=== PATIENT | female | born 1935 | race Caucasian/White ===

== ENCOUNTER 2017-07-17 13:11 | Inpatient (IN) | payer MEDICARE, BC ==
--- NOTE | 2017-07-17 13:40 | ED ---
General Adult HPI - General Chief complaint: Fall Stated complaint: FALL Time Seen by Provider: 07/17/17 13:23 Source: EMS, RN notes reviewed Mode of arrival: EMS Limitations: no limitations - History of Present Illness Initial comments: 82-year-old female presents to the emergency Department chief complaint of fall. Patient states that she fell getting out of the bathtub. Patient is a poor historian. Patient does state she had some lightheadedness prior to the fall. She denies chest pain or shortness of breath. She denies hitting her head. She complains of left hip and low back pain. She states she has not walked since the fall.Patient denies any recent fever, chills, shortness of breath, chest pain, abdominal pain, nausea vomiting, numbness or tingling, dysuria or hematuria, constipation or diarrhea, headaches or visual changes, or any other current symptoms. - Related Data Home Medications Medication Instructions Recorded Confirmed Albuterol Inhaler [Ventolin Hfa 2 puff INHALATION RT-Q4H PRN 07/17/17 07/17/17 Inhaler] Aspirin EC [Ecotrin Low Dose] 81 mg PO DAILY 07/17/17 07/17/17 Brimonidine Tartrate [Alphagan P 1 drops BOTH EYES BID 07/17/17 07/17/17 0.15% Ophth Soln] Cholecalciferol [Vitamin D3] 5,000 unit PO DAILY 07/17/17 07/17/17 Cyanocobalamin (Vitamin B-12) 2,000 mcg PO DAILY 07/17/17 07/17/17 [Vitamin B-12] Fluticasone/Salmeterol [Advair 1 puff INHALATION RT-BID 07/17/17 07/17/17 500-50 Diskus] Multivitamins, Thera [Multivitamin 1 tab PO DAILY 07/17/17 07/17/17 (formulary)] Simvastatin [Zocor] 10 mg PO HS 07/17/17 07/17/17 Timolol 0.5% Ophth Gel Forming 1 drop BOTH EYES DAILY 07/17/17 07/17/17 [Timoptic-Xe 0.5% Gel Form] amLODIPine [Norvasc] 10 mg PO DAILY 07/17/17 07/17/17 traMADol HCL [Ultram] 50 mg PO BID PRN 07/17/17 07/17/17 Allergies Allergy/AdvReac Type Severity Reaction Status Date / Time acetaminophen [From Tylenol] Allergy Unknown Verified 07/17/17 15:14 CALCIUM CITRATE AdvReac LEG CRAMPS Uncoded 07/17/17 15:14 Review of Systems ROS Statement: Those systems with pertinent positive or pertinent negative responses have been documented in the HPI. ROS Other: All systems not noted in ROS Statement are negative. Past Medical History Past Medical History: COPD, Dementia, Hypertension History of Any Multi-Drug Resistant Organisms: None Reported Past Surgical History: No Surgical Hx Reported Past Psychological History: No Psychological Hx Reported Smoking Status: Current every day smoker Past Alcohol Use History: None Reported Past Drug Use History: None Reported General Exam - General Exam Comments Initial Comments: General: The patient is awake and alert, in no distress, and does not appear acutely ill. Eye: Pupils are equal, round and reactive to light, extra-ocular movements are intact; there is normal conjunctiva bilaterally. No signs of icterus. Ears, nose, mouth and throat: There are moist mucous membranes and no oral lesions. Neck: The neck is supple, there is no tenderness. Cardiovascular: There is a regular rate and rhythm. No murmur, rub or gallop is appreciated. Respiratory: Lungs are clear to auscultation, respirations are non-labored, breath sounds are equal. No wheezes, stridor, rales, or rhonchi. Gastrointestinal: Soft, non-distended, non-tender abdomen without masses or organomegaly noted. There is no rebound or guarding present. No CVA tenderness. Bowel sounds are unremarkable. Back: There is no tenderness to palpation in the midline. There is no obvious deformity. No rashes noted. tenderness to left lateral hip. Musculoskeletal: Normal ROM, no tenderness, There is no pedal edema. tenderness to palpation over left hip. There is no calf tenderness or swelling. Sensation intact. Pulses equal bilaterally 2+. Neurological: CN II-XII intact, There are no obvious motor or sensory deficits. Coordination appears grossly intact. Speech is normal. Skin: Skin is warm and dry and no rashes or lesions are noted. Psychiatric: Cooperative, appropriate mood & affect, normal judgment. Limitations: no limitations Course Vital Signs 07/17/17 07/17/17 13:13 15:00 Temperature 98.2 F Pulse Rate 89 82 Respiratory 20 20 Rate Blood Pressure 191/90 194/84 O2 Sat by Pulse 91 L 97 Oximetry EKG Findings - EKG Comments: EKG Findings:: normal sinus rhythm 87 bpm, normal axis, no atopy, no S-T depressions or elevations, Medical Decision Making - Medical Decision Making 82-year-old female presents emergency department chief of left hip pain.at this time CAT scan is reviewed and negative. At this time chest x-ray does show concern for right lower lobe pneumonia with a pulmonary nodule. This and the patient due to the frequent falls the lightheadedness and the finding of pneumonia. Patient is in agreement with this plan. Dr. Kwong does agree to the admission. - Lab Data Result diagrams: 07/17/17 13:44 07/17/17 13:44 Lab Results 07/17/17 07/17/17 07/17/17 Range/Units 13:44 13:44 13:44 WBC 17.5 H (3.8-10.6) k/uL RBC 5.37 (3.80-5.40) m/uL Hgb 16.0 (11.4-16.0) gm/dL Hct 48.8 H (34.0-46.0) % MCV 90.8 (80.0-100.0) fL MCH 29.7 (25.0-35.0) pg MCHC 32.8 (31.0-37.0) g/dL RDW 14.5 (11.5-15.5) % Plt Count 235 (150-450) k/uL Neutrophils % 89 % Lymphocytes % 6 % Monocytes % 3 % Eosinophils % 1 % Basophils % 0 % Neutrophils # 15.6 H (1.3-7.7) k/uL Lymphocytes # 1.1 (1.0-4.8) k/uL Monocytes # 0.6 (0-1.0) k/uL Eosinophils # 0.1 (0-0.7) k/uL Basophils # 0.0 (0-0.2) k/uL PT (9.0-12.0) sec INR (<1.2) APTT (22.0-30.0) sec Sodium 137 (137-145) mmol/L Potassium 3.8 (3.5-5.1) mmol/L Chloride 104 (98-107) mmol/L Carbon Dioxide 24 (22-30) mmol/L Anion Gap 9 mmol/L BUN 10 (7-17) mg/dL Creatinine 0.60 (0.52-1.04) mg/dL Est GFR (MDRD) Af Amer >60 (>60 ml/min/1.73 sqM) Est GFR (MDRD) Non-Af >60 (>60 ml/min/1.73 sqM) Glucose 106 H (74-99) mg/dL Calcium 8.9 (8.4-10.2) mg/dL Magnesium 1.6 (1.6-2.3) mg/dL Total Bilirubin 0.5 (0.2-1.3) mg/dL AST 16 (14-36) U/L ALT 24 (9-52) U/L Alkaline Phosphatase 91 (38-126) U/L Total Creatine Kinase 34 (30-135) U/L CK-MB (CK-2) 0.8 (0.0-2.4) ng/mL CK-MB (CK-2) Rel Index 2.4 Troponin I <0.012 (0.000-0.034) ng/mL Total Protein 6.5 (6.3-8.2) g/dL Albumin 3.4 L (3.5-5.0) g/dL 07/17/17 Range/Units 13:44 WBC (3.8-10.6) k/uL RBC (3.80-5.40) m/uL Hgb (11.4-16.0) gm/dL Hct (34.0-46.0) % MCV (80.0-100.0) fL MCH (25.0-35.0) pg MCHC (31.0-37.0) g/dL RDW (11.5-15.5) % Plt Count (150-450) k/uL Neutrophils % % Lymphocytes % % Monocytes % % Eosinophils % % Basophils % % Neutrophils # (1.3-7.7) k/uL Lymphocytes # (1.0-4.8) k/uL Monocytes # (0-1.0) k/uL Eosinophils # (0-0.7) k/uL Basophils # (0-0.2) k/uL PT 10.5 (9.0-12.0) sec INR 1.0 (<1.2) APTT 23.9 (22.0-30.0) sec Sodium (137-145) mmol/L Potassium (3.5-5.1) mmol/L Chloride (98-107) mmol/L Carbon Dioxide (22-30) mmol/L Anion Gap mmol/L BUN (7-17) mg/dL Creatinine (0.52-1.04) mg/dL Est GFR (MDRD) Af Amer (>60 ml/min/1.73 sqM) Est GFR (MDRD) Non-Af (>60 ml/min/1.73 sqM) Glucose (74-99) mg/dL Calcium (8.4-10.2) mg/dL Magnesium (1.6-2.3) mg/dL Total Bilirubin (0.2-1.3) mg/dL AST (14-36) U/L ALT (9-52) U/L Alkaline Phosphatase (38-126) U/L Total Creatine Kinase (30-135) U/L CK-MB (CK-2) (0.0-2.4) ng/mL CK-MB (CK-2) Rel Index Troponin I (0.000-0.034) ng/mL Total Protein (6.3-8.2) g/dL Albumin (3.5-5.0) g/dL - Radiology Data Radiology results: report reviewed, image reviewed Disposition Clinical Impression: Fall, Contusion of left hip, Lumbar contusion, Right lower lobe pneumonia, Pulmonary nodule, Weakness, Altered mental status Disposition: ADMITTED IP TO THIS [facility] Condition: Stable Referrals: Nonstaff,Physician [Primary Care Provider] - 1-2 days Decision Date: 07/17/17 Decision Time: 15:21
[2017-07-17 14:00] LABS: Basophils % (A) 0 %; CH 29.6; CHCM 32.7; Eosinophils # (A) 0.1 k/uL (0-0.7); Eosinophils % (A) 1 %; HCT 48.8 % (34.0-46.0); HDW 2.37; Luc # (Auto) 0.07; Luc % (Auto) 0; Lymphocytes # (A) 1.1 k/uL (1.0-4.8); Lymphocytes % (A) 6 %; MCH 29.7 pg (25.0-35.0); MCHC 32.8 g/dL (31.0-37.0); MCV 90.8 fL (80.0-100.0); Mean Platelet Volume 7.2; Monocytes # (A) 0.6 k/uL (0-1.0); Monocytes % (A) 3 %; Neutrophils # (A) 15.6 k/uL (1.3-7.7); Neutrophils % (A) 89 %; RBC 5.37 m/uL (3.80-5.40); RDW 14.5 % (11.5-15.5); WBC 17.5 k/uL (3.8-10.6); WBC (Perox) 16.33
[2017-07-17 14:17] LABS: Partial Thromboplastin Time 23.9 sec (22.0-30.0); Prothrombin Time 10.5 sec (9.0-12.0)
--- NOTE | 2017-07-17 14:18 | XR ---
EXAMINATION TYPE: XR chest 1V DATE OF EXAM: 07/17/2017 COMPARISON: NONE HISTORY: Pain TECHNIQUE: Single frontal view of the chest is obtained. FINDINGS: Nodular density overlying the left lower lobe measuring 1 cm. Subsegmental changes at the right lung base and right apex. Atherosclerotic change aorta. Underlying COPD suspected. IMPRESSION: 1. 1 cm left lower lobe pulmonary nodule. Additional ill-defined infiltrate right apex and right lowe r lobe. Consider follow-up CT scan.
--- NOTE | 2017-07-17 14:20 | XR ---
EXAMINATION TYPE: XR Hip LT and AP Pelvis DATE OF EXAM: 07/17/2017 COMPARISON: NONE HISTORY: Pain TECHNIQUE: A single AP view of the pelvis is obtained. Two views of the left hip are obtained. FINDINGS: There is diffuse osteopenia. SI joints are symmetric. Joint spaces are preserved. No definite acute displaced fracture. IMPRESSION: 1. No definite acute displaced fracture. If symptoms persist obtained CT scan.
[2017-07-17 14:22] LABS: ALT 24 U/L (9-52); AST 16 U/L (14-36); Alkaline Phosphatase 91 U/L (38-126); Anion Gap 9 mmol/L; Blood Urea Nitrogen 10 mg/dL (7-17); Calcium 8.9 mg/dL (8.4-10.2); Carbon Dioxide 24 mmol/L (22-30); Chloride 104 mmol/L (98-107); Glucose 106 mg/dL (74-99); Magnesium 1.6 mg/dL (1.6-2.3); Non-African American GFR(MDRD) >60 (>60 ml/min/1.73 sqM); Potassium 3.8 mmol/L (3.5-5.1); Sodium 137 mmol/L (137-145); Total Bilirubin 0.5 mg/dL (0.2-1.3); Total Protein 6.5 g/dL (6.3-8.2)
[2017-07-17 14:26] LABS: Creatine Kinase 34 U/L (30-135)
--- NOTE | 2017-07-17 14:29 | XR ---
Lumbar spine HISTORY: Pain from fall 3 views of the lumbar spine No comparisons There is a S-shaped scoliosis suspected in the thoracic lumbar spine. Vertebral bodies show low atten uation. Lumbar vertebral bodies show preserved height. Alignment is maintained. Loss of disc height p resent at L2-3. Spondylosis is present. Bone mineralization is reduced. Dense vascular calcifications are present. IMPRESSION: Osteopenia, scoliosis.
[2017-07-17 14:38] LABS: Creatine Kinase MB 0.8 ng/mL (0.0-2.4); Troponin I <0.012 ng/mL (0.000-0.034)
--- NOTE | 2017-07-17 15:07 | CT ---
EXAMINATION TYPE: CT hip LT wo con DATE OF EXAM: 07/17/2017 COMPARISON: Plain film same date HISTORY: Left hip pain. CT DLP: 237.6 mGycm Automated exposure control for dose reduction was used. Helical acquisition through the left hip. Cor onal and sagittal reconstructions. FINDINGS: There is no displaced fracture or dislocation. Alignment is maintained. Bone mineralization is reduce d and joint space are normal. Soft tissues are normal. Atherosclerotic vascular calcifications are pr esent. Probable bone island present within the ischium. IMPRESSION: NO ACUTE FRACTURE OR DISLOCATION.
[2017-07-17] MEDS ORDERED: IPRATROPIUM-ALBUTEROL 3 ML NEB INHALATION PRN (15:21)
[2017-07-17] MEDS ORDERED: LEVOFLOXACIN 750MG-D5W PMX 750 MG in DEXTROSE/WATER 1 150ML.BAG IVPB STA (15:21)
[2017-07-17] MEDS ORDERED: PNEUMONIA PROTOCOL UTILIZED 1 EACH MISC PO PRN (15:21)
[2017-07-17] MEDS ORDERED: ALBUTEROL NEBULIZED 2.5 MG/3 ML INHALATION PRN (15:23)
[2017-07-17] MEDS ORDERED: MORPHINE SULFATE 2 MG/ML SYRINGE IVP STA (15:24)
[2017-07-17] MEDS: SODIUM CHLORIDE 0.9% 1,000 ML IV SCH (15:53)
[2017-07-17] MEDS ORDERED: ACETAMINOPHEN TAB 325 MG TAB PO PRN (16:00)
[2017-07-17] MEDS ORDERED: MORPHINE SULFATE 4 MG/ML SYRINGE IV PRN (16:00)
[2017-07-17] MEDS ORDERED: RX INFO: IV CONTRAST WAS GIVEN 1 EACH MISC MISCELLANE PRN (16:04)
[2017-07-17] MEDS ORDERED: hydrALAZINE HCL 20 MG/ML 1 ML VIAL IM PRN (16:15)
--- NOTE | 2017-07-17 16:33 | P.HPIM ---
History of Present Illness H&P Date: 07/17/17 Chief Complaint: fall Patient is an 82-year-old female with a past medical history of significant tobacco abuse, hypertension, dementia, and COPD presented via EMS after a fall. She states that she was walking to her bedroom from the bathroom around 2 AM and fell. She states her legs felt weak and she fell. She denies any dizziness, lightheadedness, and/or fainting. She denies any recent illnesses including cough, cold, fever, and chills. Her brother and sister-in- law are at bedside state that she has been complaining of headache. She states that she had one last week but it is better now. The headache is typically at the back of her head without radiation, feels like a pressure, and is worse at night. She is unsure what makes it better or worse but it is intermittent. Her [id number] states that she has been complaining of intermittent dizziness. She has had a cough that is wet and nonproductive for quite some time. They also report that she has lost approximately 15 pounds in the last 6 months. She has a poor appetite, lives alone, and has Meals on Wheels. She does not use a cane or a walker. She does complain of hip pain after her fall. Initially she complained of left- sided hip pain to her family in the emergency personnel. She currently complains of right hip pain without radiation. She recently started seeing Dr. Fermin of visiting physicians. She denies any recent changes in her medications. She has only been taking Advair as needed. She struggles with memory and feels she may benefit from a home health care nurse. In the emergency department she underwent an extensive evaluation. She had a CT of her hip done which was negative. Lumbar spine x-ray was negative. Chest x-ray showed possible right apex infiltration and 1 cm left lower lobe pulmonary nodule. She was given a dose of Levaquin and IV fluids. EKG is reviewed by me reveals normal sinus rhythm with no significant ST-T wave changes at a rate of 87. Review of Systems General: no fever/chills, no rigors, + weight loss, + decreased appetite Eyes: No double vision, no unusual blurry vision, no loss of vision ENT: No rhinorrhea, congestion, no trush Cardiovascular: No chest pain, no palpitations, no syncope, no edema, No paroxysmal nocturnal dyspnea, + dizziness Pulmonary: No shortness of breath, no wheezing, + chronic cough, hemoptysis Abdominal: No abdominal pain, no constipation, no diarrhea, no vomiting, no nausea, no distention Genitourinary: No dysuria, no urinary frequency, no hematuria, no unusual discharge/odor Neuro: + headache, No unusual paresthesias, no unusual paresis/paralysis Dermatologic: No unusual rashes, no unusual lesions, no unusual changes in nails Endocrinology: No intolerance to heat/cold, no excessive thirst,] no unusual fatigue Hematologic: No unusual bruising or bleeding, no unusual cervical lymphadenopathy Psychiatric: No changes in mood or behaviors, no changes in sleep pattern Past Medical History Past Medical History: COPD, Dementia, Hypertension Additional Past Medical History / Comment(s): Glaucoma, hard of hearing History of Any Multi-Drug Resistant Organisms: None Reported Past Surgical History: No Surgical Hx Reported Past Psychological History: No Psychological Hx Reported Smoking Status: Current every day smoker (Smokes approximately 2 packs a day of mini cigars.) Past Alcohol Use History: None Reported Past Drug Use History: None Reported Additional History: Lives alone, does not use any assistive devices - Past Family History Mother Additional Family Medical History / Comment(s): Heart disease Father Additional Family Medical History / Comment(s): Had part of his lung removed- possibly for lung cancer Medications and Allergies Home Medications Medication Instructions Recorded Confirmed Type Albuterol Inhaler [Ventolin Hfa 2 puff INHALATION RT-Q4H PRN 07/17/17 07/17/17 History Inhaler] Aspirin EC [Ecotrin Low Dose] 81 mg PO DAILY 07/17/17 07/17/17 History Brimonidine Tartrate [Alphagan P 1 drops BOTH EYES BID 07/17/17 07/17/17 History 0.15% Ophth Soln] Cholecalciferol [Vitamin D3] 5,000 unit PO DAILY 07/17/17 07/17/17 History Cyanocobalamin (Vitamin B-12) 2,000 mcg PO DAILY 07/17/17 07/17/17 History [Vitamin B-12] Fluticasone/Salmeterol [Advair 1 puff INHALATION RT-BID 07/17/17 07/17/17 History 500-50 Diskus] Multivitamins, Thera [Multivitamin 1 tab PO DAILY 07/17/17 07/17/17 History (formulary)] Simvastatin [Zocor] 10 mg PO HS 07/17/17 07/17/17 History Timolol 0.5% Ophth Gel Forming 1 drop BOTH EYES DAILY 07/17/17 07/17/17 History [Timoptic-Xe 0.5% Gel Form] amLODIPine [Norvasc] 10 mg PO DAILY 07/17/17 07/17/17 History traMADol HCL [Ultram] 50 mg PO BID PRN 07/17/17 07/17/17 History Allergies Allergy/AdvReac Type Severity Reaction Status Date / Time CALCIUM CITRATE AdvReac LEG CRAMPS Uncoded 07/17/17 15:14 Physical Exam Osteopathic Statement: *. No significant issues noted on an osteopathic structural exam other than those noted in the History and Physical/Consult. Vitals: Vital Signs Temp Pulse Resp BP Pulse Ox 07/17/17 16:08 99.2 F 07/17/17 16:00 72 18 178/82 94 L 07/17/17 15:00 82 20 194/84 97 07/17/17 13:13 98.2 F 89 20 191/90 91 L Intake and Output 07/17/17 07/17/17 07/17/17 06:59 14:59 22:59 Other: Weight 45.359 kg Patient Weight 07/18/17 06:59 Weight 45.359 kg General: non toxic, no distress, appears older than stated age, cachectic Derm: no rashes, no lesions, no ulcers, no unusual ecchymoses Head: atraumatic, normocephalic, symmetric Eyes: EOMI, no lid lag, anicteric sclera, pupils equal round reactive to light ENT: no post nasal drip, no thrush , nearest patent, no pharyngeal erythema Neck: No thyromegaly, no cervical lymphadenopathy, trachea midline, supple Mouth: no lip lesion, mucous membranes dry Cardiovascular: S1S2 reg, no murmur, positive posterior tibial pulse bilateral, no edema , no JVD, no clubbing, no cyanosis, capillary refill less than 2 seconds Lungs: Decreased breath sounds bilateral bases, no rhonchi, no rales , no accessory muscle use Abdominal: soft, nontender to palpation, no guarding, no appreciable organomegaly, normal bowel sounds Ext: no gross muscle atrophy, muscle strength 4 out of 5 in all 4 extremities grossly, no contractures, Neuro: CN II-XI grossly intact, light touch intact all 4 extremities, finger to nose within normal limits, Psych: Alert, oriented, appropriate affect Results CBC & Chem 7: 07/17/17 13:44 07/17/17 13:44 Labs: Abnormal Lab Results - Last 24 Hours (Table) 07/17/17 07/17/17 Range/Units 13:44 13:44 WBC 17.5 H (3.8-10.6) k/uL Hct 48.8 H (34.0-46.0) % Neutrophils # 15.6 H (1.3-7.7) k/uL Glucose 106 H (74-99) mg/dL Albumin 3.4 L (3.5-5.0) g/dL Comments: EKG reviewed by me reveals normal sinus rhythm rate of [address]- T wave changes Chest x-ray: report reviewed, image reviewed CT scan - chest: pending CT Scan - head: pending Thrombosis Risk Factor Assmnt - DVT/VTE Prophylaxis DVT/VTE Prophylaxis: Mechanical Prophylaxis ordered Assessment and Plan (1) Right upper lobe pneumonia Status: Acute (2) Accelerated hypertension Status: Acute (3) Dementia Status: Acute (4) Protein calorie malnutrition Status: Acute (5) Contusion of left hip Status: Acute (6) Fall Status: Acute (7) Pulmonary nodule Status: Acute Plan: #Right-sided pneumonia -Levaquin IV 1 given with follow-up oral dosing - await sputum culture - With history of smoking will check CT chest - IVF - Bronchodilators # Fall with left hip contusion -Pain control -PT/OT eval -Likely will need home health #Headache associated with dizziness and nausea -Check head CT -Telemetry -2-D echocardiogram Accelerated hypertension -Likely secondary to pain and not taking oral medication -Resume Norvasc -As needed hydralazine #1 cm left lower lobe pulmonary nodule -Check CT chest #Moderate protein calorie nutrition -dietary recommendations # Tobacco abuse -Nicotine replacement Pain cessation recommended # Dementia -Continue to provide a safe and supportive environment #COPD without exacerbation -Continue with Advair and DuoNeb therapy -No indication for steroids Chronic: Hearing loss Glaucoma Surrogate decision-maker: Sunny Holly, brother [phone] CODE STATUS: DO NOT RESUSCITATE DVT prophylaxis: SCDs Discussed with: Patient, family, ER provider Anticipated discharge: 24-[address]: Home with home health A total of 60 minutes was spent on the care of this complex patient more than 50 % of the time was spent in counseling and care coordination.
[2017-07-17] MEDS: amLODIPine 10 MG TAB PO SCH (16:47)
[2017-07-17] MEDS: ONDANSETRON 4 MG/2 ML VIAL IVP PRN (16:47)
[2017-07-17 17:23] LABS: Appearance,Urine Cloudy (Clear); Bacteria,Urine Many /hpf; Bilirubin,Urine Negative (Negative); Glucose,Urine (UA) Negative (Negative); Granular Casts,Urine 3 /lpf (0); Ketones,Urine Negative (Negative); Leukocyte Esterase,Urine Small (Negative); Mucus,Urine Rare /hpf; Nitrite,Urine Negative (Negative); PH, Urine 7.5 (5.0-8.0); Particle Count 22022; Protein,Urine Trace (Negative); RBC,Urine 10 /hpf (0-5); Specific Gravity,Urine 1.011 (1.001-1.035); UA Billing (MACRO vs. MICRO) MICRO; Urobilinogen,Urine <2.0 mg/dL (<2.0); WBC,Urine 8 /hpf (0-5)
[2017-07-17] MEDS: NICOTINE 21MG/24HR PATCH TRANSDERM SCH (17:31)
--- NOTE | 2017-07-17 18:55 | CT ---
EXAMINATION TYPE: CT brain wo con DATE OF EXAM: 07/17/2017 COMPARISON: NONE HISTORY: WARD CT DLP: 1797.0 mGycm Automated exposure control for dose reduction was used. FINDINGS: There is moderate hypodensity in the vila-white matter in both cerebral hemispheres and more noticeab le in the right frontal lobe and right parietal lobe. There is no midline shift. There is no sign of intracranial hemorrhage. The calvarium is intact. IMPRESSION: EXTENSIVE VILA AND WHITE MATTER CHANGES IN BOTH CEREBRAL HEMISPHERES AND MORE IN THE RIGHT HEMISPHERE COMPARED TO THE LEFT PROBABLY DUE TO CHRONIC ISCHEMIA. NO HEMORRHAGE. THERE IS RELATIVE SPARING OF T HE CEREBELLUM.
--- NOTE | 2017-07-17 19:01 | CT ---
EXAMINATION TYPE: CT chest w con DATE OF EXAM: 07/17/2017 COMPARISON: NONE HISTORY: Possible pneumonia. CT DLP: 176.0 mGycm Automated exposure control for dose reduction was used. CONTRAST: CT scan of the chest is performed with IV Contrast, patient injected with 100 mL of Omnipaque 300. FINDINGS: There is mild pulmonary emphysema. There are subpleural interstitial density in the right lower lobe. There is a 4 x 5 cm area of masslike consolidation in the right lower lobe at the posterior basal se gment. There are a few bilateral bronchial lymph nodes that measure up to 1 cm. Thoracic aorta is ath eromatous. There is no evidence of dissection. There is a 2 cm irregular area of consolidation in the posterior left lower lobe. There is a 2.5 cm irregular rounded area of consolidation in the subpleur al lateral left lower lobe. There is mild bilateral enlargement of the adrenal glands without a discrete mass seen. I see no foca l liver defect. There is mild thoracic kyphosis. I see no focal bone destruction. IMPRESSION: There is masslike consolidation in several areas of both lower lobes. This is suspicious for tumor. The possibility of metastatic disease should be considered. Emphysema. Pulmonary interstitial fibrosis.
[2017-07-17] MEDS: SYMBICORT 160-4.5 MCG INHALER INHALATION SCH (19:42)
[2017-07-17] MEDS: ATORVASTATIN 10 MG TAB PO SCH (20:44)
[2017-07-17] MEDS: BRIMONIDINE TARTRATE 0.2% DROPS 5 ML BTL BOTH EYES SCH (20:44)
[2017-07-18] MEDS: SODIUM CHLORIDE 0.9% 1,000 ML IV SCH ×3 (03:32→21:37)
[2017-07-18] MEDS: SYMBICORT 160-4.5 MCG INHALER INHALATION SCH ×2 (08:21→20:55)
[2017-07-18] MEDS: ASPIRIN 81 MG PO SCH (08:31)
[2017-07-18] MEDS: BRIMONIDINE TARTRATE 0.2% DROPS 5 ML BTL BOTH EYES SCH ×2 (08:31→21:37)
[2017-07-18] MEDS: amLODIPine 10 MG TAB PO SCH (08:31)
[2017-07-18] MEDS: NICOTINE 21MG/24HR PATCH TRANSDERM SCH (08:32)
[2017-07-18] MEDS: TIMOLOL 0.5% OPHTH DROPS 5 ML BTL BOTH EYES SCH ×2 (08:40→21:37)
[2017-07-18] MEDS: traMADol 50 MG TAB PO PRN ×2 (08:46→16:45)
[2017-07-18] MEDS ORDERED: amLODIPine 10 MG TAB PO SCH (09:00)
[2017-07-18 09:16] LABS: CH 30.1; CHCM 32.9; HCT 46.7 % (34.0-46.0); HDW 2.38; HGB 15.5 gm/dL (11.4-16.0); MCH 30.6 pg (25.0-35.0); MCHC 33.2 g/dL (31.0-37.0); MCV 92.2 fL (80.0-100.0); Mean Platelet Volume 8.2; RBC 5.06 m/uL (3.80-5.40); RDW 15.3 % (11.5-15.5); WBC 10.5 k/uL (3.8-10.6)
[2017-07-18] MEDS ORDERED: RX INFO: IV CONTRAST WAS GIVEN 1 EACH MISC MISCELLANE PRN (09:18)
[2017-07-18 09:35] LABS: Anion Gap 10 mmol/L; Blood Urea Nitrogen 8 mg/dL (7-17); Calcium 8.8 mg/dL (8.4-10.2); Carbon Dioxide 26 mmol/L (22-30); Chloride 103 mmol/L (98-107); Glucose 95 mg/dL (74-99); Non-African American GFR(MDRD) >60 (>60 ml/min/1.73 sqM); Potassium 3.8 mmol/L (3.5-5.1); Sodium 139 mmol/L (137-145)
--- NOTE | 2017-07-18 10:02 | P.PN ---
Subjective Principal diagnosis: Fall Patient is an 82-year-old female with a past medical history of significant tobacco abuse, hypertension, dementia, and COPD presented via EMS after a fall. In the emergency department she underwent an extensive evaluation. She had a CT of her hip done which was negative. Lumbar spine x- ray was negative. Chest x-ray showed possible right apex infiltration and 1 cm left lower lobe pulmonary nodule. She was given a dose of Levaquin and IV fluids. She was admitted to the general medical floor for further monitoring and care. She underwent a CT brain for headaches which demonstrated age- related atrophy. She underwent a CT chest which showed several masslike lesion area and pulmonology was consult. Patient seen and examined at bedside. She is still having some pain. She is having some cough which is unchanged. She denies any chest pain, shortness of breath, wheezing nausea, or vomiting. She is still feeling weak. We discussed the CT finding of mass like area of lymph node enlargement. She is in agreement with plan for pulmonary evaluation and possible need for biopsy. I met with family at approximately 11 AM to discuss findings on the CT scan. They are in agreement with pulmonary consultation. They're very concerned that she does not like to go to physician appointments and attempts to refuse follow- up. They would appreciate anything be able to be completed while she is hospitalized. Objective - Vital Signs Vital signs: Vital Signs Temp 97.0 F L 07/18/17 07:00 Pulse 69 07/18/17 07:00 Resp 18 07/18/17 07:00 BP 137/72 07/18/17 07:00 Pulse Ox 90 L 07/18/17 07:00 Intake & Output 07/17/17 07/18/17 07/18/17 18:59 06:59 18:59 Weight 45.359 kg Other: Voiding Method Bedside Commode # Voids 4 1 - Exam General: non toxic, no distress, appears older stated age, cachectic Derm: no rashes, no lesions Head: atraumatic, normocephalic, symmetric Eyes: EOMI, no lid lag, anicteric sclera ENT: no post nasal drip, no thrush Mouth: no lip lesion, mucus membranes moist Cardiovascular: S1S2 reg, no murmur, positive posterior tibial pulse bilateral, Lungs: Decreased breath sounds bilaterally, no rhonchi, no rales , no accessory muscle use Abdominal: soft, nontender to palpation, no guarding, no appreciable organomegaly Ext: no gross muscle atrophy, no edema, no contractures Neuro: CN II-XI grossly intact, no focal neuro deficits Psych: Alert, oriented, appropriate affect - Labs CBC & Chem 7: 07/18/17 08:12 07/18/17 08:12 Labs: Abnormal Lab Results - Last 24 Hours (Table) 07/17/17 07/17/17 07/17/17 Range/Units 13:44 13:44 17:05 WBC 17.5 H (3.8-10.6) k/uL Hct 48.8 H (34.0-46.0) % Neutrophils # 15.6 H (1.3-7.7) k/uL Glucose 106 H (74-99) mg/dL Albumin 3.4 L (3.5-5.0) g/dL Urine Appearance Cloudy H (Clear) Urine Protein Trace H (Negative) Ur Leukocyte Esterase Small H (Negative) Urine RBC 10 H (0-5) /hpf Urine WBC 8 H (0-5) /hpf Urine Bacteria Many H (None) /hpf Urine Mucus Rare H (None) /hpf 07/18/17 Range/Units 08:12 WBC (3.8-10.6) k/uL Hct 46.7 H (34.0-46.0) % Neutrophils # (1.3-7.7) k/uL Glucose (74-99) mg/dL Albumin (3.5-5.0) g/dL Urine Appearance (Clear) Urine Protein (Negative) Ur Leukocyte Esterase (Negative) Urine RBC (0-5) /hpf Urine WBC (0-5) /hpf Urine Bacteria (None) /hpf Urine Mucus (None) /hpf Assessment and Plan Plan: # Multiple pulmonary masses - pulm consultation--?FOB vs CT guided biopsy - Check CT abd and pelvis for additional tumor bourdon - head CT negative #Right-sided pneumonia -Levaquin IV 1 given with follow-up oral dosing - sputum culture not acceptible for culture, will reorder - IVF - Bronchodilators # Fall with left hip contusion -Pain control -PT/OT eval -Likely will need home health #Headache associated with dizziness and nausea -Check head CT -Telemetry -2-D echocardiogram Accelerated hypertension, resolved - Norvasc -As needed hydralazine #Moderate protein calorie nutrition -dietary recommendations # Tobacco abuse -Nicotine replacement - cessation recommended # Dementia -Continue to provide a safe and supportive environment #COPD without exacerbation -Continue with Advair and DuoNeb therapy -No indication for steroids Chronic: Hearing loss Glaucoma Surrogate decision-maker: radha Tamezer [phone] CODE STATUS: DO NOT RESUSCITATE DVT prophylaxis: SCDs Discussed with: Patient, family, nursing Anticipated discharge: 24-[address]: Home with home health A total of 45 minutes was spent on the care of this complex patient more than 50 % of the time was spent in counseling and care coordination.
[2017-07-18] MEDS: IBUPROFEN 400 MG TAB PO PRN (11:07)
[2017-07-18] MEDS: MULTIVITAMINS, THERA 1 EACH TAB PO SCH (11:09)
[2017-07-18] MEDS: CHOLECALCIFEROL 1,000 UNIT TAB PO SCH (11:09)
[2017-07-18] MEDS: CYANOCOBALAMIN 500 MCG TAB PO SCH (11:09)
--- NOTE | 2017-07-18 14:18 | XR ---
EXAMINATION TYPE: XR chest 2V DATE OF EXAM: 07/18/2017 COMPARISON: Prior chest x-ray and CT 07/17/2017 HISTORY: Pneumonia, cough and congestion TECHNIQUE: Frontal and lateral views of the chest are obtained. FINDINGS: Prominent lung volumes suggest underlying COPD. There is patchy increased density present at the right lung base, there are associated air bronchograms. Some increased density questioned in t he left lung base. No evident pneumothorax or pleural effusion. Heart is small. Patient is rotated an d there are overlying cardiac leads. Heart size is stable. IMPRESSION: Findings compatible with right lower lobe pneumonia. Left lower lobe lung mass versus pn eumonia. Emphysema. Follow-up recommended.
--- NOTE | 2017-07-18 14:19 | ECHOF ---
Referral Reason:dizziness MEASUREMENTS -------- HEIGHT: 165.1 cm WEIGHT: 45.4 kg BP: 112/58 IVSd: 1.1 cm (0.6 - 1.1) LVIDd: 3.7 cm (3.9 - 5.3) LVPWd: 1.0 cm (0.6 - 1.1) IVSs: 1.3 cm LVIDs: 3.1 cm LVPWs: 1.4 cm Ao Diam: 3.6 cm (2.0 - 3.7) AV Cusp: 1.7 cm (1.5 - 2.6) LA Diam: 4.0 cm (2.7 - 3.8) MV EXCURSION: 15.621 mm (> 18.000) MV EF SLOPE: 94 mm/s (70 - 150) EPSS: 0.3 cm MV E Mitesh: 0.61 m/s MV DecT: 200 ms MV A Mitesh: 0.77 m/s MV E/A Ratio: 0.80 RAP: 5.00 mmHg RVSP: 11.51 mmHg FINDINGS -------- Sinus rhythm. This was a technically adequate study. LV size, wall thickness and systolic function are normal, with an EF greater than 55%. The left ventricular size is normal. The right ventricle is normal in size. The left atrial size is normal. The right atrial size is normal. There is mild aortic valve sclerosis. There is no evidence of aortic regurgitation. Mild mitral annular calcification present. Mild mitral regurgitation is present. Mild tricuspid regurgitation present. There is no evidence of pulmonary hypertension. The right ventricular systolic pressure, as measured by Doppler, is 11.51mmHg. There is no pulmonic regurgitation present. The aortic root size is normal. There is no pericardial effusion. CONCLUSIONS -------- 1. LV size, wall thickness and systolic function are normal, with an EF greater than 55%. 2. The left ventricular size is normal. 3. There is mild aortic valve sclerosis. 4. Mild mitral regurgitation is present. 5. Mild tricuspid regurgitation present. 6. There is no evidence of pulmonary hypertension. 7. The right ventricular systolic pressure, as measured by Doppler, is 11.51mmHg. 8. There is no pulmonic regurgitation present. 9. The aortic root size is normal. DAIRY MANAGER: Jailyn Martino RDCS
[2017-07-18 14:39] VITALS: BMI 16.6
--- NOTE | 2017-07-18 15:57 | P.CNPUL ---
History of Present Illness Reason for consult: dyspnea, cough, COPD, hypoxemia, pneumonia Chief complaint: Generalized weakness shortness of breath History of present illness: 82-year-old female with a history of extensive smoking and nicotine use presented into the hospital after the fall patient was found to have abnormal x- ray I was asked to evaluate this patient further his x-rays and CAT scan are reviewed chest x-ray revealed presence of right lower lobe nodular infiltrate versus mass a computed tomography scan of the chest revealed presence of a large mass in the right lower lobe posterior basal segment about 4 x 5 cm in size as well as a left lower lobe 2 nodules which are about 2-3 cm in size one is close to thoracic wall on the left side but very approximate and close to the pleura past medical history of significant tobacco abuse, hypertension, dementia, and COPD presented via EMS after a fall. She states that she was walking to her bedroom from the bathroom around 2 AM and fell. She states her legs felt weak and she fell. She denies any dizziness, lightheadedness, and/or fainting. She denies any recent illnesses including cough, cold, fever, and chills. Her brother and [id number] are at bedside state that she has been complaining of headache. She states that she had one last week but it is better now. The headache is typically at the back of her head without radiation, feels like a pressure, and is worse at night. She is unsure what makes it better or worse but it is intermittent. Her [id number] states that she has been complaining of intermittent dizziness. She has had a cough that is wet and nonproductive for quite some time. They also report that she has lost approximately 15 pounds in the last 6 months. She has a poor appetite, lives alone, and has Meals on Wheels. She does not use a cane or a walker. She does complain of hip pain after her fall. Initially she complained of left- sided hip pain to her family in the emergency personnel. She currently complains of right hip pain without radiation. She recently started seeing Dr. Fermin of visiting physicians. She denies any recent changes in her medications. She has only been taking Advair as needed. She struggles with memory and feels she may benefit from a home health care nurse. In the emergency department she underwent an extensive evaluation. She had a CT of her hip done which was negative. Lumbar spine x-ray was negative. Chest x-ray showed possible right apex infiltration and 1 cm left lower lobe pulmonary nodule. She was given a dose of Levaquin and IV fluids. EKG is reviewed by me reveals normal sinus rhythm with no significant ST-T wave changes at a rate of 87. Review of Systems General: no fever/chills, no rigors, + weight loss, + decreased appetite Eyes: No double vision, no unusual blurry vision, no loss of vision ENT: No rhinorrhea, congestion, no trush Cardiovascular: No chest pain, no palpitations, no syncope, no edema, No paroxysmal nocturnal dyspnea, + dizziness Pulmonary: No shortness of breath, no wheezing, + chronic cough, hemoptysis Abdominal: No abdominal pain, no constipation, no diarrhea, no vomiting, no nausea, no distention Genitourinary: No dysuria, no urinary frequency, no hematuria, no unusual discharge/odor Neuro: + headache, No unusual paresthesias, no unusual paresis/paralysis Dermatologic: No unusual rashes, no unusual lesions, no unusual changes in nails Endocrinology: No intolerance to heat/cold, no excessive thirst,] no unusual fatigue Hematologic: No unusual bruising or bleeding, no unusual cervical lymphadenopathy Psychiatric: No changes in mood or behaviors, no changes in sleep pattern Past Medical History Past Medical History: COPD, Hyperlipidemia, Hypertension, Memory Impairment Additional Past Medical History / Comment(s): Glaucoma, hard of hearing,migarine History of Any Multi-Drug Resistant Organisms: None Reported Past Surgical History: No Surgical Hx Reported Past Anesthesia/Blood Transfusion Reactions: Motion Sickness Smoking Status: Current every day smoker - Past Family History Father Additional Family Medical History / Comment(s): Had part of his lung removed- possibly for lung cancer Mother Additional Family Medical History / Comment(s): Heart disease Medications and Allergies Home Medications Medication Instructions Recorded Confirmed Type Albuterol Inhaler [Ventolin Hfa 2 puff INHALATION RT-Q4H PRN 07/17/17 07/17/17 History Inhaler] Aspirin EC [Ecotrin Low Dose] 81 mg PO DAILY 07/17/17 07/17/17 History Brimonidine Tartrate [Alphagan P 1 drops BOTH EYES BID 07/17/17 07/17/17 History 0.15% Ophth Soln] Cholecalciferol [Vitamin D3] 5,000 unit PO DAILY 07/17/17 07/17/17 History Cyanocobalamin (Vitamin B-12) 2,000 mcg PO DAILY 07/17/17 07/17/17 History [Vitamin B-12] Fluticasone/Salmeterol [Advair 1 puff INHALATION RT-BID 07/17/17 07/17/17 History 500-50 Diskus] Multivitamins, Thera [Multivitamin 1 tab PO DAILY 07/17/17 07/17/17 History (formulary)] Simvastatin [Zocor] 10 mg PO HS 07/17/17 07/17/17 History Timolol 0.5% Ophth Gel Forming 1 drop BOTH EYES DAILY 07/17/17 07/17/17 History [Timoptic-Xe 0.5% Gel Form] amLODIPine [Norvasc] 10 mg PO DAILY 07/17/17 07/17/17 History traMADol HCL [Ultram] 50 mg PO BID PRN 07/17/17 07/17/17 History Allergies Allergy/AdvReac Type Severity Reaction Status Date / Time CALCIUM CITRATE AdvReac LEG CRAMPS Uncoded 07/17/17 15:14 Physical Exam Vitals: Vital Signs Temp Pulse Pulse Resp BP BP Pulse Ox 07/18/17 07:00 97.0 F L 69 18 137/72 90 L 07/17/17 23:00 98.2 F 68 24 112/57 94 L 07/17/17 17:36 153/70 07/17/17 17:25 97 07/17/17 16:38 98.4 F 99 18 216/93 93 L 07/17/17 16:08 99.2 F 07/17/17 16:00 72 18 178/82 94 L Intake and Output 07/18/17 07/18/17 07/18/17 06:59 14:59 22:59 Other: Voiding Method Bedside Commode # Voids 4 1 Weight 45.359 kg Patient Weight 07/19/17 06:59 Weight 45.359 kg General: non toxic, no distress, appears older than stated age, cachectic Derm: no rashes, no lesions, no ulcers, no unusual ecchymoses Head: atraumatic, normocephalic, symmetric Eyes: EOMI, no lid lag, anicteric sclera, pupils equal round reactive to light ENT: no post nasal drip, no thrush , nearest patent, no pharyngeal erythema Neck: No thyromegaly, no cervical lymphadenopathy, trachea midline, supple Mouth: no lip lesion, mucous membranes dry Cardiovascular: S1S2 reg, no murmur, positive posterior tibial pulse bilateral, no edema , no JVD, no clubbing, no cyanosis, capillary refill less than 2 seconds Lungs: Decreased breath sounds bilateral bases, no rhonchi, no rales , no accessory muscle use Abdominal: soft, nontender to palpation, no guarding, no appreciable organomegaly, normal bowel sounds Ext: no gross muscle atrophy, muscle strength 4 out of 5 in all 4 extremities grossly, no contractures, Neuro: CN II-XI grossly intact, light touch intact all 4 extremities, finger to nose within normal limits, Psych: Alert, oriented, appropriate affec Results Sputum culture obtained on 07/18/2017 no obvious growth is seen contaminated with oral secretion Chest x-ray performed 07/17/2017 revealed 1.1 cm right lower lobe nodule with additional infiltrated nodule in the lower lobes cannot be excluded Hip and pelvis x-ray performed July 17 along with lumbar spine x-ray performed on the same day and hip CT on the same day along with brain CT on the same day failed to reveal any significant pathology except chronic changes on brain CT Computed tomography scan of the chest performed on July 17 and revealed right lower lobe 5 x 4 cm mass in the posterior basal segment in addition to that as dictated above at 2 nodules on the left lower lobe some mediastinal lymph nodes are seen by A adrenal gland hyperplasia identified as well CT D echocardiogram performed on July 18 ejection fraction is 55% no significant pulmonary hypertension is seen Chest x-ray performed 07/18/2017 pretty much same review same abnormal finding and abnormality as dictated previously - Laboratory Findings CBC and BMP: 07/18/17 08:12 07/18/17 08:12 PT/INR, D-dimer PT 10.5 sec (9.0-12.0) 07/17/17 13:44 INR 1.0 (<1.2) 07/17/17 13:44 Abnormal lab findings: Abnormal Labs 07/17/17 07/17/17 07/17/17 13:44 13:44 17:05 WBC 17.5 H Hct 48.8 H Neutrophils # 15.6 H Glucose 106 H Albumin 3.4 L Urine Appearance Cloudy H Urine Protein Trace H Ur Leukocyte Esterase Small H Urine RBC 10 H Urine WBC 8 H Urine Bacteria Many H Urine Mucus Rare H 07/18/17 08:12 WBC Hct 46.7 H Neutrophils # Glucose Albumin Urine Appearance Urine Protein Ur Leukocyte Esterase Urine RBC Urine WBC Urine Bacteria Urine Mucus Assessment and Plan Plan: Bilateral pulmonary consolidation along with masslike appearance with a differential diagnoses of bilateral aspiration pneumonia versus metastatic neoplasm likely lung being primary COPD Uncontrolled hypertension/asked us alerted hypertension Dementia and Alzheimer's disease along with component of protein calorie malnourishment Status post fall Overall plan is continue to gently rehydrate the patient maintain patient on DVT and peptic ulcer disease prophylaxis pain management I have explained the patient and the family about bronchoscopy and transbronchial lung biopsy educated them about risk alternative and side effect patient's procedure is being scheduled for tomorrow would recommend to continue breathing treatment antibiotics at the same time Time with Patient: Greater than 30
[2017-07-18] MEDS: IOHEXOL 350 MG/ML 25 ML BOTTLE (ORAL USE) PO PRN ×2 (16:37→17:44)
[2017-07-18] MEDS: LEVOFLOXACIN 750 MG TAB PO SCH (16:47)
[2017-07-18] MEDS: ONDANSETRON 4 MG/2 ML VIAL IVP PRN (16:51)
--- NOTE | 2017-07-18 20:49 | CT ---
EXAMINATION TYPE: CT abdomen pelvis w con DATE OF EXAM: 07/18/2017 COMPARISON: NONE HISTORY: Generalized abdominal pain. CT DLP: 302.90 mGycm Automated exposure control for dose reduction was used. TECHNIQUE: Helical acquisition of images was performed from the lung bases through the pelvis. CONTRAST: Performed without Oral Contrast and with IV Contrast, patient injected with 100 mL of Omnipaque 300. FINDINGS: There are bilateral lower lobe pulmonary masses. There is no pleural effusion. Liver shows no focal defect. There is no sign of a pancreatic mass. Spleen appears normal. Bile ducts are not dilated. There is some bulkiness of the left adrenal gland that measures 2 x 1.5 cm. Kidneys show satisfactory contrast opacification. There is no hydronephrosis. There is a 8 mm cortical cyst on the anterior ri ght kidney. There is no retroperitoneal adenopathy. Abdominal aorta is atheromatous. Bladder distends smoothly. I see no pelvic mass. There is no sign of a bowel obstruction. I see no intestinal wall th ickening. There is high attenuation in the dependent gallbladder consistent with IV contrast from yes terday's exam. I see no bony destructive process. IMPRESSION: BILATERAL LOWER LOBE PULMONARY MASSES SUSPICIOUS FOR TUMOR. ATHEROSCLEROTIC VASCULAR DISEASE. SMALL RENAL CORTICAL CYSTS. NO SIGN OF ACUTE ABDOMEN AND PELVIS.
[2017-07-18] MEDS: ATORVASTATIN 10 MG TAB PO SCH (21:37)
[2017-07-19] MEDS: SYMBICORT 160-4.5 MCG INHALER INHALATION SCH ×2 (08:16→19:20)
[2017-07-19] MEDS: amLODIPine 10 MG TAB PO SCH (09:52)
[2017-07-19] MEDS: ASPIRIN 81 MG PO SCH (09:52)
[2017-07-19] MEDS: TIMOLOL 0.5% OPHTH DROPS 5 ML BTL BOTH EYES SCH ×2 (10:23→20:26)
[2017-07-19] MEDS: NICOTINE 21MG/24HR PATCH TRANSDERM SCH (10:23)
[2017-07-19] MEDS: CYANOCOBALAMIN 500 MCG TAB PO SCH (10:24)
[2017-07-19] MEDS: MULTIVITAMINS, THERA 1 EACH TAB PO SCH (10:24)
[2017-07-19] MEDS: CHOLECALCIFEROL 1,000 UNIT TAB PO SCH (10:24)
[2017-07-19] MEDS: BRIMONIDINE TARTRATE 0.2% DROPS 5 ML BTL BOTH EYES SCH ×2 (10:24→20:26)
[2017-07-19] MEDS: SODIUM CHLORIDE 0.9% 1,000 ML IV SCH ×2 (10:56→16:34)
--- NOTE | 2017-07-19 11:46 | P.PN ---
Subjective Principal diagnosis: Fall Patient is an 82-year-old female with a past medical history of significant tobacco abuse, hypertension, dementia, and COPD presented via EMS after a fall. In the emergency department she underwent an extensive evaluation. She had a CT of her hip done which was negative. Lumbar spine x- ray was negative. Chest x-ray showed possible right apex infiltration and 1 cm left lower lobe pulmonary nodule. She was given a dose of Levaquin and IV fluids. She was admitted to the general medical floor for further monitoring and care. She underwent a CT brain for headaches which demonstrated age- related atrophy. She underwent a CT chest which showed several mass like lesion area and pulmonology was consulted. CT abdomen and pelvis showed no masses. Arrangements are made for bronchoscopy on 07/19. Patient is refusing to go to [facility] facility. She is considering home health care. Patient seen and examined at bedside. She denies any chest pain, shortness of breath, nausea, vomiting, or diarrhea. She understands that she needs a sample of the tissue to look for cancer. She will not stay in a rehab facility. She will consider having home health come to her house. Met with family at bedside. Patient is alert and does seem to comprehend the meaning of going to a facility or going home with home health. She is refusing to go to a [facility] facility. I discussed with her and the family the need for continuing follow-up with Dr. Elizalde for biopsy results. Patient wishes to leave this evening but family would like her to stay until tomorrow. I discussed with the patient that she needs to undergo biopsy without complications, be tolerating a diet, and work with physical therapy prior to discharge. Objective - Vital Signs Vital signs: Vital Signs Temp 98.4 F 07/19/17 07:00 Pulse 73 07/19/17 07:00 Resp 16 07/19/17 07:00 BP 150/72 07/19/17 07:00 Pulse Ox 92 L 07/19/17 07:00 Intake & Output 07/18/17 07/19/17 07/19/17 18:59 06:59 18:59 Intake Total 800 Balance 800 Weight 45.359 kg Intake: Intake, IV Titration 800 Amount Sodium Chloride 0.9% 1, 800 000 ml @ 100 mls/hr IV . Q10H TIFFANIE Rx#:[id number] Oral 0 Other: # Voids 2 1 - Exam General: non toxic, no distress, appears older stated age, cachectic Derm: no rashes, no lesions Head: atraumatic, normocephalic, symmetric Eyes: EOMI, no lid lag, anicteric sclera ENT: no post nasal drip, no thrush Mouth: no lip lesion, mucus membranes moist Cardiovascular: S1S2 reg, no murmur, positive posterior tibial pulse bilateral, Lungs: Decreased breath sounds bilaterally, no rhonchi, no rales , no accessory muscle use Abdominal: soft, nontender to palpation, no guarding, no appreciable organomegaly Ext: no gross muscle atrophy, no edema, no contractures Neuro: CN II-XI grossly intact, no focal neuro deficits Psych: Alert, oriented, appropriate affect - Labs CBC & Chem 7: 07/18/17 08:12 07/18/17 08:12 Labs: Microbiology - Last 24 Hours (Table) 07/17/17 16:37 Blood Culture - Preliminary Blood No Growth after 24 hours 07/18/17 08:32 Gram Stain - Final Sputum Sputum Culture - Final Assessment and Plan Plan: # Multiple pulmonary masses - pulm consultation- FOB today - CT abd and pelvis without additional tumor bourdon - head CT negative #Right-sided pneumonia -Levaquin IV 1 given with follow-up oral dosing - sputum culture not acceptible for culture, culture reordered - IVF - Bronchodilators # Fall with left hip contusion -Pain control -PT/OT eval -Likely will need home health #Headache associated with dizziness and nausea - head CT and Telemetry negative -2-D echocardiogram normal - Likely due to weakness and decreased oral intake Accelerated hypertension, resolved - Norvasc -As needed hydralazine #Moderate protein calorie nutrition -dietary recommendations # Tobacco abuse -Nicotine replacement - cessation recommended # Dementia -Continue to provide a safe and supportive environment #COPD without exacerbation -Continue with Advair and DuoNeb therapy -No indication for steroids Chronic: Hearing loss Glaucoma Case discussed with family at length. Will try to get POA papers singed and notarized. Surrogate decision-maker: Sunny Holly brother [phone] CODE STATUS: DO NOT RESUSCITATE DVT prophylaxis: SCDs Discussed with: Patient, family, nursing Anticipated discharge: today or tomorrow Anticipated discharge place: Home with home health A total of 401 minutes was spent on the care of this complex patient more than 50% of the time was spent in counseling and care coordination.
[2017-07-19] MEDS ORDERED: PROPOFOL 10 MG/ML 20 ML VIAL IV ONE (13:16)
[2017-07-19] MEDS ORDERED: KETAMINE 10 MG/ML 20 ML VIAL ONE (13:16)
[2017-07-19] MEDS ORDERED: MIDAZOLAM 2 MG/2 ML VIAL ONE (13:16)
[2017-07-19] MEDS ORDERED: LIDOCAINE 2%-EPI 1:100,000 20 ML VIAL INTRAARTIC ONE (13:49)
[2017-07-19] MEDS ORDERED: LIDOCAINE 2% SYG (PF) 100 MG/5 ML MISCELLANE ONE (13:50)
--- NOTE | 2017-07-19 13:58 | XR ---
EXAMINATION TYPE: XR chest 1V portable DATE OF EXAM: 07/19/2017 COMPARISON: Prior chest x-ray 07/18/2017 HISTORY: Status post bronchoscopy TECHNIQUE: Single frontal view of the chest is obtained. FINDINGS: Patient is rotated. No evident pneumothorax or pleural effusion. Basilar increased density persists. IMPRESSION: No evident complication status post bronchoscopy.
--- NOTE | 2017-07-19 14:30 | FL ---
EXAMINATION TYPE: FL bronchoscopy DATE OF EXAM: 07/19/2017 COMPARISON: NONE HISTORY: Right lower lobe biopsy Fluoroscopy support supplied to the referring clinician. See dictated report from Josue de luna fluoroscopy time supplied, intraoperative C-arm image documents the procedure
--- NOTE | 2017-07-19 14:54 | P.PN ---
Subjective Principal diagnosis: Aspiration pneumonia, bilateral masslike density infiltrate 82-year-old female with a history of extensive smoking and nicotine use presented into the hospital after the fall patient was found to have abnormal x- ray I was asked to evaluate this patient further his x-rays and CAT scan are reviewed chest x-ray revealed presence of right lower lobe nodular infiltrate versus mass a computed tomography scan of the chest revealed presence of a large mass in the right lower lobe posterior basal segment about 4 x 5 cm in size as well as a left lower lobe 2 nodules which are about 2-3 cm in size one is close to thoracic wall on the left side but very approximate and close to the pleura past medical history of significant tobacco abuse, hypertension, dementia, and COPD presented via EMS after a fall. She states that she was walking to her bedroom from the bathroom around 2 AM and fell. She states her legs felt weak and she fell. She denies any dizziness, lightheadedness, and/or fainting. She denies any recent illnesses including cough, cold, fever, and chills. Her brother and [id number] are at bedside state that she has been complaining of headache. She states that she had one last week but it is better now. The headache is typically at the back of her head without radiation, feels like a pressure, and is worse at night. She is unsure what makes it better or worse but it is intermittent. Her [id number] states that she has been complaining of intermittent dizziness. She has had a cough that is wet and nonproductive for quite some time. They also report that she has lost approximately 15 pounds in the last 6 months. She has a poor appetite, lives alone, and has Meals on Wheels. She does not use a cane or a walker. She does complain of hip pain after her fall. Initially she complained of left- sided hip pain to her family in the emergency personnel. She currently complains of right hip pain without radiation. She recently started seeing Dr. Fermin of visiting physicians. She denies any recent changes in her medications. She has only been taking Advair as needed. She struggles with memory and feels she may benefit from a home health care nurse. In the emergency department she underwent an extensive evaluation. She had a CT of her hip done which was negative. Lumbar spine x-ray was negative. Chest x-ray showed possible right apex infiltration and 1 cm left lower lobe pulmonary nodule. She was given a dose of Levaquin and IV fluids. EKG is reviewed by me reveals normal sinus rhythm with no significant ST-T wave changes at a rate of 87. 07/19/2017, patient seen eval at examined during the round on fourth floor she is awake and alert breathing comfortably she is oriented 1-2 remains mostly confused care plan discussed with the patient and family at length, patient is scheduled for bronchoscopy and transbronchial lung biopsy later on today, her risk alternative and side effects have been explained to the patient in the meantime we'll continue patient on broad-spectrum antibiotics Objective - Vital Signs Vital signs: Vital Signs Temp 98.4 F 07/19/17 07:00 Pulse 73 07/19/17 07:00 Resp 16 07/19/17 07:00 BP 150/72 07/19/17 07:00 Pulse Ox 92 L 07/19/17 07:00 Intake & Output 07/18/17 07/19/17 07/19/17 18:59 06:59 18:59 Intake Total 800 Balance 800 Weight 45.359 kg Intake: Intake, IV Titration 800 Amount Sodium Chloride 0.9% 1, 800 000 ml @ 100 mls/hr IV . Q10H [facility] Rx#:[id number] Oral 0 Other: # Voids 2 1 1 - Exam General: non toxic, no distress, appears older than stated age, cachectic Derm: no rashes, no lesions, no ulcers, no unusual ecchymoses Head: atraumatic, normocephalic, symmetric Eyes: EOMI, no lid lag, anicteric sclera, pupils equal round reactive to light ENT: no post nasal drip, no thrush , nearest patent, no pharyngeal erythema Neck: No thyromegaly, no cervical lymphadenopathy, trachea midline, supple Mouth: no lip lesion, mucous membranes dry Cardiovascular: S1S2 reg, no murmur, positive posterior tibial pulse bilateral, no edema , no JVD, no clubbing, no cyanosis, capillary refill less than 2 seconds Lungs: Decreased breath sounds bilateral bases, no rhonchi, no rales , no accessory muscle use Abdominal: soft, nontender to palpation, no guarding, no appreciable organomegaly, normal bowel sounds Ext: no gross muscle atrophy, muscle strength 4 out of 5 in all 4 extremities grossly, no contractures, Neuro: CN II-XI grossly intact, light touch intact all 4 extremities, finger to nose within normal limits, Psych: Alert, oriented, appropriate affec - Labs CBC & Chem 7: 07/18/17 08:12 07/18/17 08:12 Labs: Microbiology - Last 24 Hours (Table) 07/17/17 16:37 Blood Culture - Preliminary Blood No Growth after 24 hours Assessment and Plan Plan: Bilateral pulmonary consolidation along with masslike appearance with a differential diagnoses of bilateral aspiration pneumonia versus metastatic neoplasm likely lung being primary COPD Uncontrolled hypertension/asked us alerted hypertension Dementia and Alzheimer's disease along with component of protein calorie malnourishment Status post fall Overall plan is continue to gently rehydrate the patient maintain patient on DVT and peptic ulcer disease prophylaxis pain management I have explained the patient and the family about bronchoscopy and transbronchial lung biopsy educated them about risk alternative and side effect patient's procedure is being scheduled for tomorrow would recommend to continue breathing treatment antibiotics at the same time
--- NOTE | 2017-07-19 15:01 | P.PCN ---
Date of Procedure: 07/19/17 Preoperative Diagnosis: Bilateral lung consolidation, aspiration pneumonia, multiple lung masses Postoperative Diagnosis: As above Procedure(s) Performed: Bronchoscopy, bronchoalveolar lavage of the right lower lobe, transbronchial lung biopsy under fluoroscopy Surgeon: George Elizalde Estimated Blood Loss (ml): 20 Condition: stable Disposition: floor Indications for Procedure: As dictated above Operative Findings: As dictated below Description of Procedure: Patient prepared and draped in the usual fashion for detail of the anesthesia please refer to the notes of anesthesia. The bronchoscope was passed through the left nares, the upper airway was somewhat edematous with phlegm was present occluding the airway which was suctioned and cleaned vocal cords were normal structure and function tip of the scope was has been on the vocal cords into the trachea which was inflamed bilateral diffuse right heme edema in the right side as well as the left side was noted with extensive amount of mucus plugging which was clogging the bronchoscope. Patient's saturation at the start of procedure were low 90s however they do drop down into 70s and 60s requiring removal of the scope patient was back for short period of time and says for symbolize into 90s and then the scope was reinserted through the left nares left upper lobe lingular lobe and left lower lobe along with subsegment was inspected and no endobronchial mass or lesion was seen to above the scope was passed on the right side right upper lobe right middle lobe and right lower lobe subsegment were seen diffuse right heme edema was present the mucus was engorged and easy to bleed especially in the lower lobar touching BAL was performed from the right lower lobe, lidocaine with the appendectomy was given followed by under guidance of fluoroscopy multiple biopsies were obtained from the right lower lobe patient tolerated procedure well besides transient desaturation no complication was noted
[2017-07-19] MEDS: LEVOFLOXACIN 750 MG TAB PO SCH (16:22)
[2017-07-19] MEDS: traMADol 50 MG TAB PO PRN (16:34)
[2017-07-19] MEDS: IBUPROFEN 400 MG TAB PO PRN (16:35)
[2017-07-19] MEDS: ONDANSETRON 4 MG/2 ML VIAL IVP PRN (17:35)
[2017-07-19] MEDS: ATORVASTATIN 10 MG TAB PO SCH (20:26)
[2017-07-20] MEDS: SODIUM CHLORIDE 0.9% 1,000 ML IV SCH ×2 (04:20→10:53)
[2017-07-20] MEDS: traMADol 50 MG TAB PO PRN ×2 (04:49→10:53)
[2017-07-20] MEDS: NICOTINE 21MG/24HR PATCH TRANSDERM SCH (07:44)
[2017-07-20] MEDS: BRIMONIDINE TARTRATE 0.2% DROPS 5 ML BTL BOTH EYES SCH (07:44)
[2017-07-20] MEDS: ASPIRIN 81 MG PO SCH (07:44)
[2017-07-20] MEDS: TIMOLOL 0.5% OPHTH DROPS 5 ML BTL BOTH EYES SCH (07:45)
[2017-07-20] MEDS: amLODIPine 10 MG TAB PO SCH (07:45)
[2017-07-20] MEDS: SYMBICORT 160-4.5 MCG INHALER INHALATION SCH (08:20)
[2017-07-20 08:34] VITALS: RESP 16
[2017-07-20] MEDS: CYANOCOBALAMIN 500 MCG TAB PO SCH (10:53)
[2017-07-20] MEDS: MULTIVITAMINS, THERA 1 EACH TAB PO SCH (10:53)
[2017-07-20] MEDS: CHOLECALCIFEROL 1,000 UNIT TAB PO SCH (10:53)
--- NOTE | 2017-07-20 12:24 | P.DS ---
Providers Date of admission: 07/17/17 15:57 Expected date of discharge: 07/20/17 Attending physician: Esteban Tanner MD Consults: 07/18/17 07:49 Consult Physician Routine Consulting Provider: George Elizalde Consult Reason/Comments: pulmonary mass/tumor Do you want consulting provider notified?: Yes Primary care physician: Physician Nonstaff - Discharge Diagnosis(es) (1) Pulmonary nodule Current Visit: Yes Status: Acute (2) Right lower lobe pneumonia Current Visit: Yes Status: Acute (3) Accelerated hypertension Current Visit: Yes Status: Acute (4) Fall Current Visit: Yes Status: Acute (5) Contusion of left hip Current Visit: Yes Status: Acute (6) Dementia Current Visit: Yes Status: Acute (7) Lumbar contusion Current Visit: Yes Status: Acute (8) Weakness Current Visit: Yes Status: Acute (9) Headache Current Visit: Yes Status: Acute (10) Tobacco abuse Current Visit: Yes Status: Acute (11) Protein-calorie malnutrition, moderate Current Visit: Yes Status: Acute (12) COPD without exacerbation Current Visit: Yes Status: Acute Hospital Course: Patient is an 82-year-old female with a past medical history of significant tobacco abuse, hypertension, dementia, and COPD presented via EMS after a fall. In the emergency department she underwent an extensive evaluation. She had a CT of her hip done which was negative. Lumbar spine x- ray was negative. Chest x-ray showed possible right apex infiltration and 1 cm left lower lobe pulmonary nodule. She was given a dose of Levaquin and IV fluids. She was admitted to the general medical floor for further monitoring and care. She underwent a CT brain for headaches which demonstrated age- related atrophy. She underwent a CT chest which showed several mass like lesion area and pulmonology was consulted. CT abdomen and pelvis showed no masses. She underwent bronchoscopy on 07/19 with transbronchial biopsy, results pending at time of discharge. She was significantly weak during her hospitalization and unable to ambulate independently. Her oxygen levels were stable on 4 L nasal cannula. She was supposed oxygen 24 hours a day at home but had only been wearing it at night. She will not consider stopping smoking despite requiring the use of oxygen. Her and the family are aware that the pulmonary masses found are likely cancer. They have ensured that they will follow-up with Dr. Elizalde for the results of her pain. After much discussion with the patient and the family she has agreed [facility]. She was feeling better, her weakness had slightly improved, and her breathing has stabilized. She was discharged in stable condition. Patient seen and examined at bedside. Feeling slightly better than yesterday. Breathing seems to be at baseline for her. He still has intermittent cough. She does not have any nausea or vomiting. She did eat slightly more last night. Vital signs reviewed and stable. General: non toxic, no distress, appears at stated age Derm: no rashes, no lesions Head: atraumatic, normocephalic, symmetric Eyes: EOMI, no lid lag, anicteric sclera ENT: no post nasal drip, no thrush Mouth: no lip lesion, mucus membranes moist Cardiovascular: S1S2 reg, no murmur, positive posterior tibial pulse bilateral, Lungs: Rhonchi right base, no rhonchi, no rales , no accessory muscle use Abdominal: soft, nontender to palpation, no guarding, no appreciable organomegaly Ext: no gross muscle atrophy, no edema, no contractures Neuro: CN II-XI grossly intact, no focal neuro deficits Psych: Alert, oriented, appropriate affect A total of 60 minutes of time were spent preparing this complex discharge summary . Pertinent Studies: CT of the chest with contrast-4 x 5 cm area of masslike consolidation in the right lower lobe posterior basilar segment, few bilateral bronchial lymph nodes up to 1 cm, 2 cm irregular area of consolidation in the posterior left lower lobe, 2.5 cm rounded area of consolidation Procedures: Bronchoscopy with biopsy on 07/19 Patient Condition at Discharge: Fair Plan - Discharge Summary New Discharge Prescriptions: New Ipratropium-Albuterol Nebulize [Duoneb 0.5 mg-3 mg/3 ml Soln] 3 ml INHALATION RT-Q4H PRN neb PRN Reason: shortness of breath Levofloxacin [Levaquin] 750 mg PO 1600 4 Days Nicotine 21Mg/24Hr Patch [Habitrol] 1 patch TRANSDERM DAILY patch Continue Fluticasone/Salmeterol [Advair 500-50 Diskus] 1 puff INHALATION RT-BID Cyanocobalamin (Vitamin B-12) [Vitamin B-12] 2,000 mcg PO DAILY Brimonidine Tartrate [Alphagan P 0.15% Ophth Soln] 1 drops BOTH EYES BID Aspirin EC [Ecotrin Low Dose] 81 mg PO DAILY Timolol 0.5% Ophth Gel Forming [Timoptic-Xe 0.5% Gel Form] 1 drop BOTH EYES DAILY Multivitamins, Thera [Multivitamin (formulary)] 1 tab PO DAILY Albuterol Inhaler [Ventolin Hfa Inhaler] 2 puff INHALATION RT-Q4H PRN PRN Reason: Shortness Of Breath amLODIPine [Norvasc] 10 mg PO DAILY Simvastatin [Zocor] 10 mg PO HS Changed traMADol HCL [Ultram] 50 mg PO QID PRN #90 PRN Reason: Pain Discontinued Cholecalciferol [Vitamin D3] 5,000 unit PO DAILY Discharge Medication List Albuterol Inhaler [Ventolin Hfa Inhaler] 2 puff INHALATION RT-Q4H PRN 07/17/17 [ History] Aspirin EC [Ecotrin Low Dose] 81 mg PO DAILY 07/17/17 [History] Brimonidine Tartrate [Alphagan P 0.15% Ophth Soln] 1 drops BOTH EYES BID [History] Cyanocobalamin (Vitamin B-12) [Vitamin B-12] 2,000 mcg PO DAILY 07/17/17 [ History] Fluticasone/Salmeterol [Advair 500-50 Diskus] 1 puff INHALATION RT-BID 07/17/17 [History] Multivitamins, Thera [Multivitamin (formulary)] 1 tab PO DAILY 07/17/17 [History ] Simvastatin [Zocor] 10 mg PO HS 07/17/17 [History] Timolol 0.5% Ophth Gel Forming [Timoptic-Xe 0.5% Gel Form] 1 drop BOTH EYES DAILY 07/17/17 [History] amLODIPine [Norvasc] 10 mg PO DAILY 07/17/17 [History] Ipratropium-Albuterol Nebulize [Duoneb 0.5 mg-3 mg/3 ml Soln] 3 ml INHALATION RT -Q4H PRN neb 07/20/17 [Rx] Levofloxacin [Levaquin] 750 mg PO 1600 4 Days 07/20/17 [Rx] Nicotine 21Mg/24Hr Patch [Habitrol] 1 patch TRANSDERM DAILY patch 07/20/17 [Rx] traMADol HCL [Ultram] 50 mg PO QID PRN #90 07/20/17 [Rx] Follow up Appointment(s)/Referral(s): Nonstaff,Physician [Primary Care Provider] - 1-2 days George Elizalde MD [STAFF PHYSICIAN] - 1 Week Activity/Diet/Wound Care/Special Instructions: Heart healthy diet, magic cup with meals, activity as tolerated, fall precautions, Oxygen at 4L NC at all times. Please ensure follow-up with Dr. Elizalde for bronch results. Discharge Disposition: TRANSFER TO SNF/ECF Pending Studies Pending Results: Pathology and cultures from bronchoscopy
[2017-07-20] MEDS: LEVOFLOXACIN 750 MG TAB PO SCH (15:12)
[2017-07-20 15:39] VITALS: BP 113/54; PULSE 63; TEMP 98.3
--- NOTE | 2017-07-20 15:43 | P.PN ---
Subjective Principal diagnosis: Aspiration pneumonia, bilateral masslike density infiltrate 82-year-old female with a history of extensive smoking and nicotine use presented into the hospital after the fall patient was found to have abnormal x- ray I was asked to evaluate this patient further his x-rays and CAT scan are reviewed chest x-ray revealed presence of right lower lobe nodular infiltrate versus mass a computed tomography scan of the chest revealed presence of a large mass in the right lower lobe posterior basal segment about 4 x 5 cm in size as well as a left lower lobe 2 nodules which are about 2-3 cm in size one is close to thoracic wall on the left side but very approximate and close to the pleura past medical history of significant tobacco abuse, hypertension, dementia, and COPD presented via EMS after a fall. She states that she was walking to her bedroom from the bathroom around 2 AM and fell. She states her legs felt weak and she fell. She denies any dizziness, lightheadedness, and/or fainting. She denies any recent illnesses including cough, cold, fever, and chills. Her brother and [id number] are at bedside state that she has been complaining of headache. She states that she had one last week but it is better now. The headache is typically at the back of her head without radiation, feels like a pressure, and is worse at night. She is unsure what makes it better or worse but it is intermittent. Her [id number] states that she has been complaining of intermittent dizziness. She has had a cough that is wet and nonproductive for quite some time. They also report that she has lost approximately 15 pounds in the last 6 months. She has a poor appetite, lives alone, and has Meals on Wheels. She does not use a cane or a walker. She does complain of hip pain after her fall. Initially she complained of left- sided hip pain to her family in the emergency personnel. She currently complains of right hip pain without radiation. She recently started seeing Dr. Fermin of visiting physicians. She denies any recent changes in her medications. She has only been taking Advair as needed. She struggles with memory and feels she may benefit from a home health care nurse. In the emergency department she underwent an extensive evaluation. She had a CT of her hip done which was negative. Lumbar spine x-ray was negative. Chest x-ray showed possible right apex infiltration and 1 cm left lower lobe pulmonary nodule. She was given a dose of Levaquin and IV fluids. EKG is reviewed by me reveals normal sinus rhythm with no significant ST-T wave changes at a rate of 87. 07/19/2017, patient seen eval at examined during the round on fourth floor she is awake and alert breathing comfortably she is oriented 1-2 remains mostly confused care plan discussed with the patient and family at length, patient is scheduled for bronchoscopy and transbronchial lung biopsy later on today, her risk alternative and side effects have been explained to the patient in the meantime we'll continue patient on broad-spectrum antibiotics 07/20/2017, patient seen and evaluated examined during the rounds on fourth floor she remains intermittently confused but doing dramatically better cuff congestion shortness of breath has improved patient remains on antibiotics in the form of Levaquin she has tolerated a bronchoscopy relatively better now she continued recovery and stabilization oxygen she denies any hemoptysis, her biopsy culture results and reports are all pending at this point of time, her AFB and fungal cultures are pending, Gram stain revealed a few gram-positive cocci final ID is pending, her post procedure chest x-ray continued to revealed right lower lobe density however no immediate complications were seen. Objective - Vital Signs Vital signs: Vital Signs Temp 98.3 F 07/20/17 15:00 Pulse 63 07/20/17 15:00 Resp 16 07/20/17 15:00 BP 113/54 07/20/17 15:00 Pulse Ox 93 L 07/20/17 15:00 Intake & Output 07/19/17 07/20/17 07/20/17 18:59 06:59 18:59 Intake Total 780 1600 Output Total 200 Balance 580 1600 Weight 45.359 kg Intake: Intake, IV Titration 500 1000 Amount Sodium Chloride 0.9% 1, 500 1000 000 ml @ 100 mls/hr IV . Q10H [facility] Rx#:[id number] Oral 280 600 Output: Urine 200 Other: Voiding Method Bedside Commode Bedside Commode Bedside Commode Diaper Diaper Diaper Incontinent Incontinent Incontinent # Voids 1 1 3 - Exam General: non toxic, no distress, appears older than stated age, cachectic Derm: no rashes, no lesions, no ulcers, no unusual ecchymoses Head: atraumatic, normocephalic, symmetric Eyes: EOMI, no lid lag, anicteric sclera, pupils equal round reactive to light ENT: no post nasal drip, no thrush , nearest patent, no pharyngeal erythema Neck: No thyromegaly, no cervical lymphadenopathy, trachea midline, supple Mouth: no lip lesion, mucous membranes dry Cardiovascular: S1S2 reg, no murmur, positive posterior tibial pulse bilateral, no edema , no JVD, no clubbing, no cyanosis, capillary refill less than 2 seconds Lungs: Decreased breath sounds bilateral bases, no rhonchi, no rales , no accessory muscle use Abdominal: soft, nontender to palpation, no guarding, no appreciable organomegaly, normal bowel sounds Ext: no gross muscle atrophy, muscle strength 4 out of 5 in all 4 extremities grossly, no contractures, Neuro: CN II-XI grossly intact, light touch intact all 4 extremities, finger to nose within normal limits, Psych: Alert, oriented, appropriate affec - Labs CBC & Chem 7: 07/18/17 08:12 07/18/17 08:12 Labs: Microbiology - Last 24 Hours (Table) 07/19/17 13:45 Gram Stain - Preliminary Bronchial Washings - Right Bronchial Washings Culture - Preliminary 07/19/17 13:45 Fungal Culture - Preliminary Bronchial Washings - Right 07/19/17 13:45 Acid Fast Bacilli Culture - Preliminary Bronchial Washings - Right 07/17/17 16:37 Blood Culture - Preliminary Blood No Growth after 48 hours Assessment and Plan Plan: Bilateral pulmonary consolidation along with masslike appearance with a differential diagnoses of bilateral aspiration pneumonia versus metastatic neoplasm likely lung being primary COPD Uncontrolled hypertension/asked us alerted hypertension Dementia and Alzheimer's disease along with component of protein calorie malnourishment Status post fall Overall plan is continue to gently rehydrate the patient maintain patient on DVT and peptic ulcer disease prophylaxis pain management I would recommend to continue breathing treatment antibiotics at the same time, we'll follow up on culture results and report in case if patient discharge will recommend follow- up in outpatient setting sometime next week when the pathological and culture results are available Time with Patient: Greater than 30
== END 2017-07-20 17:07 | DRG 166 ==
LOC: EC 13:11 → 4MS4W 15:57
PROVIDERS: ADMIT Family Medicine; ATTEND Family Medicine
PROC: 0B9F8ZX Drainage of Right Lower Lung Lobe, Via Natural or Artificial Opening Endoscopic, Diagnostic (ICD-10-PCS; principal; 2017-07-19 08:35)
PROC: 0BBF8ZX Excision of Right Lower Lung Lobe, Via Natural or Artificial Opening Endoscopic, Diagnostic (ICD-10-PCS; 2017-07-19 08:35)
DX: C34.31 Malignant neoplasm of lower lobe, right bronchus or lung (principal); J18.9 Pneumonia, unspecified organism; E44.0 Moderate protein-calorie malnutrition; R64 Cachexia; J44.0 Chronic obstructive pulmonary disease with (acute) lower respiratory infection; Z99.81 Dependence on supplemental oxygen; G30.9 Alzheimer's disease, unspecified; F02.80 Dementia in other diseases classified elsewhere, unspecified severity, without behavioral disturbance, psychotic disturbance, mood disturbance, and anxiety; Z68.1 Body mass index [BMI] 19.9 or less, adult; C34.32 Malignant neoplasm of lower lobe, left bronchus or lung; Z66 Do not resuscitate; I10 Essential (primary) hypertension; E78.5 Hyperlipidemia, unspecified; S30.0XXA Contusion of lower back and pelvis, initial encounter; S70.02XA Contusion of left hip, initial encounter; R09.02 Hypoxemia; H40.9 Unspecified glaucoma; R51 Headache; H91.90 Unspecified hearing loss, unspecified ear; R42 Dizziness and giddiness; R11.0 Nausea; I67.9 Cerebrovascular disease, unspecified; R29.6 Repeated falls; R32 Unspecified urinary incontinence; F17.290 Nicotine dependence, other tobacco product, uncomplicated; Z88.8 Allergy status to other drugs, medicaments and biological substances; Z86.69 Personal history of other diseases of the nervous system and sense organs; Z91.81 History of falling; Z71.6 Tobacco abuse counseling; Z79.899 Other long term (current) drug therapy; Z79.82 Long term (current) use of aspirin; Z80.1 Family history of malignant neoplasm of trachea, bronchus and lung; Z82.49 Family history of ischemic heart disease and other diseases of the circulatory system; Z91.19 Patient's noncompliance with other medical treatment and regimen; Z79.891 Long term (current) use of opiate analgesic; Z79.51 Long term (current) use of inhaled steroids; Z71.3 Dietary counseling and surveillance; W18.2XXA Fall in (into) shower or empty bathtub, initial encounter; Y93.E1 Activity, personal bathing and showering; Y92.002 Bathroom of unspecified non-institutional (private) residence as the place of occurrence of the external cause
CPT/HCPCS: 31624; 31628; 36415; 70450; 71010; 71020; 71260; 72100; 73502; 74177; 80048; 80053; 81001; 82550; 82553; 83735; 84443; 84484; 85025; 85027; 85610; 85730; 87040; 87070; 87102; 87116; 87205; 87206; 87252; 87496; 87498; 87502; 87529; 87541; 87798; 88108; 88305; 88341; 88342; 93005; 93306; 94640; 94760; 96365; 96375; 99285

== ENCOUNTER 2017-08-09 20:49 | Emergency (ER) | payer MEDICARE, BC ==
[2017-08-09 20:53] VITALS: RESP 18
--- NOTE | 2017-08-09 21:25 | ED ---
General Adult HPI - General Chief complaint: Fall Stated complaint: fall,wrist injury Time Seen by Provider: 08/09/17 20:51 Source: patient, EMS, RN notes reviewed Mode of arrival: EMS Limitations: no limitations - History of Present Illness Initial comments: 82-year-old female presents status post fall. Patient states she fell at approximately 11 AM this morning. She fell onto her left wrist. Patient denies any head or neck trauma associated with today's fall. She does report that she fell approximately week ago and hit her head at that time. Patient denies chest pain, denies palpitations. Patient states she fell over her wheelchair. No chest pain. No abdominal pain. Patient was able to walk after the fall. She is complaining only of left wrist pain at this time. - Related Data Home Medications Medication Instructions Recorded Confirmed Albuterol Inhaler [Ventolin Hfa 2 puff INHALATION RT-Q4H PRN 07/17/17 08/09/17 Inhaler] Aspirin EC [Ecotrin Low Dose] 81 mg PO DAILY 07/17/17 08/09/17 Brimonidine Tartrate [Alphagan P 1 drops BOTH EYES BID 07/17/17 08/09/17 0.15% Ophth Soln] Cyanocobalamin (Vitamin B-12) 2,000 mcg PO DAILY 07/17/17 08/09/17 [Vitamin B-12] Multivitamins, Thera [Multivitamin 1 tab PO DAILY 07/17/17 08/09/17 (formulary)] Simvastatin [Zocor] 10 mg PO HS 07/17/17 08/09/17 Timolol 0.5% Ophth Gel Forming 1 drop BOTH EYES DAILY 07/17/17 08/09/17 [Timoptic-Xe 0.5% Gel Form] amLODIPine [Norvasc] 10 mg PO DAILY 07/17/17 08/09/17 Travoprost [Travatan Z 0.004%] 1 drop BOTH EYES HS 08/09/17 08/09/17 Previous Rx's Medication Instructions Recorded Ipratropium-Albuterol Nebulize 3 ml INHALATION RT-Q4H PRN neb 07/20/17 [Duoneb 0.5 mg-3 mg/3 ml Soln] Nicotine 21Mg/24Hr Patch [Habitrol] 1 patch TRANSDERM DAILY patch 07/20/17 traMADol HCL [Ultram] 50 mg PO QID PRN #90 07/20/17 Allergies Allergy/AdvReac Type Severity Reaction Status Date / Time latex Allergy Unknown Verified 08/09/17 21:53 CALCIUM CITRATE AdvReac LEG CRAMPS Uncoded 08/09/17 20:53 Review of Systems ROS Statement: Those systems with pertinent positive or pertinent negative responses have been documented in the HPI. ROS Other: All systems not noted in ROS Statement are negative. Past Medical History Past Medical History: COPD, Hyperlipidemia, Hypertension, Memory Impairment Additional Past Medical History / Comment(s): Glaucoma, hard of hearing,migarine History of Any Multi-Drug Resistant Organisms: None Reported Past Surgical History: No Surgical Hx Reported Past Anesthesia/Blood Transfusion Reactions: Motion Sickness Past Psychological History: No Psychological Hx Reported Smoking Status: Former smoker Past Alcohol Use History: None Reported Past Drug Use History: None Reported - Past Family History Father Additional Family Medical History / Comment(s): Had part of his lung removed- possibly for lung cancer Mother Additional Family Medical History / Comment(s): Heart disease General Exam Limitations: no limitations General appearance: alert Course Vital Signs 08/09/17 08/09/17 08/09/17 20:50 22:39 23:32 Temperature 98.8 F Pulse Rate 84 84 95 Respiratory 18 18 18 Rate Blood Pressure 180/85 144/87 161/76 O2 Sat by Pulse 94 L 97 95 Oximetry - Reevaluation(s) Reevaluation #1: 08/10/17 01:18 On reevaluation, patient denies pain. She does not want to be transferred for the brain mass. She is alert and oriented 3. EKG Findings - EKG Comments: EKG Findings:: EKG shows normal sinus rhythm, ventricular rate 80, OH interval 138, QRS duration 68, QTC 417, no ST segment elevation or depression Medical Decision Making - Medical Decision Making 82-year-old female presents status post fall with left wrist pain. Patient's x- ray did show a distal radius and ulnar fracture which is nondisplaced. Patient was placed in a splint prior to arrival at the emergency department. Additional x-rays were obtained of the pelvis and chest, pelvis x-ray is negative for fracture subluxation, chest x-ray does show an infiltrate which is improved and clearing from previous pneumonia. CT of the head is obtained and does show right frontal and parietal masses with edema and concern for small hemorrhage. These findings were discussed with the patient. She has no knowledge of any brain problems. Patient was urged on several occasions to be transferred to higher level of care for neurosurgical evaluation of face and she refuses. She is alert and oriented and her own decision maker. I did discuss these findings with her daughter who was in town and unable to come to the hospital. I attempted to contact the patient's primary care physician at the hospital but was unsuccessful. Patient is offered observation at this facility, she refuses she would like to be transferred back to the senior care. Patient is informed that these findings on computed tomography scan are quite dangerous, could result in worsening of her symptoms and even . She is aware of this and would not like transfer or further treatment. Laboratory studies reveal white blood cell count 18.3 no specific source. Urinalysis is negative. I will provide the patient with orthopedic follow-up for her left wrist fracture , also oncology and neurology follow-up regarding her brain tumor. Diagnosis: Left distal ulnar radius fracture, intracranial mass, intracranial hemorrhage, brain edema. - Lab Data Result diagrams: 08/09/17 20:55 08/09/17 20:55 Lab Results 08/09/17 08/09/17 08/09/17 Range/Units 20:55 20:55 20:55 WBC 18.3 H (3.8-10.6) k/uL RBC 5.14 (3.80-5.40) m/uL Hgb 15.5 (11.4-16.0) gm/dL Hct 48.0 H (34.0-46.0) % MCV 93.3 (80.0-100.0) fL MCH 30.1 (25.0-35.0) pg MCHC 32.3 (31.0-37.0) g/dL RDW 14.7 (11.5-15.5) % Plt Count 320 (150-450) k/uL Neutrophils % 86 % Lymphocytes % 8 % Monocytes % 4 % Eosinophils % 1 % Basophils % 0 % Neutrophils # 15.7 H (1.3-7.7) k/uL Lymphocytes # 1.4 (1.0-4.8) k/uL Monocytes # 0.8 (0-1.0) k/uL Eosinophils # 0.2 (0-0.7) k/uL Basophils # 0.0 (0-0.2) k/uL PT 10.6 (9.0-12.0) sec INR 1.0 (<1.2) APTT 22.3 (22.0-30.0) sec Sodium 135 L (137-145) mmol/L Potassium 5.0 (3.5-5.1) mmol/L Chloride 97 L (98-107) mmol/L Carbon Dioxide 27 (22-30) mmol/L Anion Gap 11 mmol/L BUN 25 H (7-17) mg/dL Creatinine 0.68 (0.52-1.04) mg/dL Est GFR (MDRD) Af Amer >60 (>60 ml/min/1.73 sqM) Est GFR (MDRD) Non-Af >60 (>60 ml/min/1.73 sqM) Glucose 102 H (74-99) mg/dL Calcium 9.6 (8.4-10.2) mg/dL Total Bilirubin 0.6 (0.2-1.3) mg/dL AST 26 (14-36) U/L ALT 26 (9-52) U/L Alkaline Phosphatase 91 (38-126) U/L Troponin I (0.000-0.034) ng/mL Total Protein 7.2 (6.3-8.2) g/dL Albumin 3.8 (3.5-5.0) g/dL Urine Color Urine Appearance (Clear) Urine pH (5.0-8.0) Ur Specific [place] (1.001-1.035) Urine Protein (Negative) Urine Glucose (UA) (Negative) Urine Ketones (Negative) Urine Blood (Negative) Urine Nitrite (Negative) Urine Bilirubin (Negative) Urine Urobilinogen (<2.0) mg/dL Ur Leukocyte Esterase (Negative) Urine RBC (0-5) /hpf Urine WBC (0-5) /hpf Ur Squamous Epith Cells (0-4) /hpf Urine Bacteria (None) /hpf Urine Mucus (None) /hpf 08/09/17 08/10/17 Range/Units 20:55 00:15 WBC (3.8-10.6) k/uL RBC (3.80-5.40) m/uL Hgb (11.4-16.0) gm/dL Hct (34.0-46.0) % MCV (80.0-100.0) fL MCH (25.0-35.0) pg MCHC (31.0-37.0) g/dL RDW (11.5-15.5) % Plt Count (150-450) k/uL Neutrophils % % Lymphocytes % % Monocytes % % Eosinophils % % Basophils % % Neutrophils # (1.3-7.7) k/uL Lymphocytes # (1.0-4.8) k/uL Monocytes # (0-1.0) k/uL Eosinophils # (0-0.7) k/uL Basophils # (0-0.2) k/uL PT (9.0-12.0) sec INR (<1.2) APTT (22.0-30.0) sec Sodium (137-145) mmol/L Potassium (3.5-5.1) mmol/L Chloride (98-107) mmol/L Carbon Dioxide (22-30) mmol/L Anion Gap mmol/L BUN (7-17) mg/dL Creatinine (0.52-1.04) mg/dL Est GFR (MDRD) Af Amer (>60 ml/min/1.73 sqM) Est GFR (MDRD) Non-Af (>60 ml/min/1.73 sqM) Glucose (74-99) mg/dL Calcium (8.4-10.2) mg/dL Total Bilirubin (0.2-1.3) mg/dL AST (14-36) U/L ALT (9-52) U/L Alkaline Phosphatase (38-126) U/L Troponin I <0.012 (0.000-0.034) ng/mL Total Protein (6.3-8.2) g/dL Albumin (3.5-5.0) g/dL Urine Color Yellow Urine Appearance Cloudy H (Clear) Urine pH 7.0 (5.0-8.0) Ur Specific [place] 1.010 (1.001-1.035) Urine Protein Negative (Negative) Urine Glucose (UA) Negative (Negative) Urine Ketones 1+ H (Negative) Urine Blood Negative (Negative) Urine Nitrite Positive H (Negative) Urine Bilirubin Negative (Negative) Urine Urobilinogen <2.0 (<2.0) mg/dL Ur Leukocyte Esterase Trace H (Negative) Urine RBC 1 (0-5) /hpf Urine WBC 5 (0-5) /hpf Ur Squamous Epith Cells 1 (0-4) /hpf Urine Bacteria Rare H (None) /hpf Urine Mucus Rare H (None) /hpf Critical Care Time Critical Care Time: Yes Total Critical Care Time: 35 Disposition Clinical Impression: Brain mass, Wrist fracture Disposition: HOME SELF-CARE Condition: Serious Instructions: Fall Prevention for Older Adults (ED), Wrist Fracture in Adults ( ED), Computed Tomography Scan (ED) Additional Instructions: Patient should follow-up with her primary care physician, neurology, orthopedics , and oncology Referrals: Hubert Davis DO [STAFF PHYSICIAN] - 1-2 days Arthur Haile MD [STAFF PHYSICIAN] - 1-2 days Renny Rosas MD [STAFF PHYSICIAN] - 1-2 days Prabhu Gould MD [STAFF PHYSICIAN] - 1-2 days Time of Disposition: 01:26
[2017-08-09 21:33] LABS: Basophils % (A) 0 %; CH 29.3; CHCM 31.5; Eosinophils # (A) 0.2 k/uL (0-0.7); Eosinophils % (A) 1 %; HDW 2.17; HGB 15.5 gm/dL (11.4-16.0); Luc # (Auto) 0.13; Luc % (Auto) 1; Lymphocytes # (A) 1.4 k/uL (1.0-4.8); Lymphocytes % (A) 8 %; MCH 30.1 pg (25.0-35.0); MCHC 32.3 g/dL (31.0-37.0); MCV 93.3 fL (80.0-100.0); Mean Platelet Volume 7.6; Monocytes # (A) 0.8 k/uL (0-1.0); Monocytes % (A) 4 %; Neutrophils # (A) 15.7 k/uL (1.3-7.7); Neutrophils % (A) 86 %; RBC 5.14 m/uL (3.80-5.40); RDW 14.7 % (11.5-15.5); WBC 18.3 k/uL (3.8-10.6); WBC (Perox) 17.28
[2017-08-09 21:55] LABS: Partial Thromboplastin Time 22.3 sec (22.0-30.0); Prothrombin Time 10.6 sec (9.0-12.0)
[2017-08-09 22:08] LABS: Anion Gap 11 mmol/L; Calcium 9.6 mg/dL (8.4-10.2); Carbon Dioxide 27 mmol/L (22-30); Chloride 97 mmol/L (98-107); Glucose 102 mg/dL (74-99); Non-African American GFR(MDRD) >60 (>60 ml/min/1.73 sqM); Sodium 135 mmol/L (137-145); Total Bilirubin 0.6 mg/dL (0.2-1.3)
--- NOTE | 2017-08-09 22:08 | CT ---
EXAMINATION TYPE: CT brain kaycee rivas con DATE OF EXAM: 08/09/2017 COMPARISON: 07/17/2017 HISTORY: Fall today. CT DLP: 1270.[address] of the brain was performed. There is increasing vasogenic edema within the right frontal lobe. Low attenuating mass is suggested within the right frontal lobe measuring approximately 2.3 cm. Within the dependent portion of this ma sslike area there is curvilinear increased density noted which is felt to reflect a small amount of h emorrhage. Additional masslike area within the right parietal occipital region with what appears to be surroundi ng vasogenic edema. I do recommend further evaluation with contrast-enhanced MRI for further characte rization. There is severe decreased attenuation about the periventricular white matter and deep white matter of both cerebral hemispheres which may reflect the changes of chronic small vessel ischemia and/or demy elination. Osseous calvarium is intact. IMPRESSION: 1. Masslike areas within the right frontal and right parietal occipital lobes with surrounding vasog enic edema. The lesion within the frontal lobe appears to demonstrate dependent curvilinear increased attenuation which may reflect a small amount of hemorrhage. There is no evidence for midline shift. MRI of the brain is recommended with and without contrast. 2. Severe Age related atrophic and chronic small vessel ischemic change and/or demyelination. CT Cervical Spine: Unenhanced CT of the cervical spine was performed with bone and soft tissue window settings submitted . Coronal and sagittal reconstruction is obtained. There is normal alignment and prevertebral soft tissues. No evidence for acute cervical fracture . Scattered degenerative disc disease and spondylosis. Biapical scarring. IMPRESSION: 1. No evidence for acute fracture or subluxation of the cervical spine.
[2017-08-09 22:11] LABS: Blood Urea Nitrogen 25 mg/dL (7-17); Total Protein 7.2 g/dL (6.3-8.2)
[2017-08-09 22:12] LABS: ALT 26 U/L (9-52); AST 26 U/L (14-36); Alkaline Phosphatase 91 U/L (38-126)
--- NOTE | 2017-08-09 22:56 | XR ---
EXAMINATION TYPE: XR pelvis AP view DATE OF EXAM: 08/09/2017 COMPARISON: 07/17/2017 HISTORY: Fell from the wheelchair. Pain. TECHNIQUE: Single view FINDINGS: The pelvic ring is intact. Proximal femurs and hip joints are intact. Sacroiliac joints caesar ear normal. There is no sign of a fracture. IMPRESSION: Negative exam. No change.
--- NOTE | 2017-08-09 22:58 | XR ---
EXAMINATION TYPE: XR chest 1V portable DATE OF EXAM: 08/09/2017 COMPARISON: 07/19/2017 HISTORY: Fall. Chest pain TECHNIQUE: Single frontal view of the chest is obtained. FINDINGS: There is some mild infiltrate at the left lung base. The other lung solis are clear. Ther e is no heart failure. Thoracic aorta is atheromatous. There is no sign of pneumothorax. The bony tho rax appears intact. IMPRESSION: Small infiltrate at the lateral left lung base is probably stable compared to last exam. There is clearing of infiltrate at right lung base compared to old exam. No heart failure.
--- NOTE | 2017-08-09 23:01 | XR ---
EXAMINATION TYPE: XR forearm LT DATE OF EXAM: 08/09/2017 COMPARISON: NONE HISTORY: Pain. Fall. TECHNIQUE: 4 views FINDINGS: There is a comminuted slightly impacted transverse fracture of the distal radius. Fracture line extends to the wrist joint. There is nondisplaced ulnar styloid process tip fracture. The carpal bones are intact. Elbow joint appears intact. IMPRESSION: Fractures of the distal radius and ulna as above. No dislocation.
[2017-08-10 00:25] LABS: Appearance,Urine Cloudy (Clear); Bacteria,Urine Rare /hpf; Bilirubin,Urine Negative (Negative); Glucose,Urine (UA) Negative (Negative); Ketones,Urine 1+ (Negative); Leukocyte Esterase,Urine Trace (Negative); Mucus,Urine Rare /hpf; Nitrite,Urine Positive (Negative); Particle Count 60573; Protein,Urine Negative (Negative); RBC,Urine 1 /hpf (0-5); Squamous Epithelial Cell,Urine 1 /hpf (0-4); UA Billing (MACRO vs. MICRO) MICRO; Urobilinogen,Urine <2.0 mg/dL (<2.0); WBC,Urine 5 /hpf (0-5)
[2017-08-10 02:40] VITALS: BP 165/79; PULSE 94; TEMP 97.8
== END 2017-08-10 02:51 | disposition home or self-care (01) ==
LOC: SUPCPDRO 20:49 → EC 20:49
DX: S52.502A Unspecified fracture of the lower end of left radius, initial encounter for closed fracture (principal); S52.602A Unspecified fracture of lower end of left ulna, initial encounter for closed fracture; G93.9 Disorder of brain, unspecified; E78.5 Hyperlipidemia, unspecified; I10 Essential (primary) hypertension; H40.9 Unspecified glaucoma; Z79.82 Long term (current) use of aspirin; Z87.891 Personal history of nicotine dependence; Z79.899 Other long term (current) drug therapy; Z91.040 Latex allergy status; Z88.8 Allergy status to other drugs, medicaments and biological substances; Z53.29 Procedure and treatment not carried out because of patient's decision for other reasons; W19.XXXA Unspecified fall, initial encounter
CPT/HCPCS: 36415; 70450; 71010; 72125; 72170; 80053; 81001; 84484; 85025; 85610; 85730; 93005; 99285